=== PATIENT | female | born 1980 | race American Indian/Alaskan Native ===

== ENCOUNTER 2016-05-02 15:24 | Outpatient (CLI) | payer MEDICARE ==
[2016-05-02] MEDS ORDERED: LACTATED RINGERS 500 ML IV ONE (15:43)
[2016-05-02 16:08] VITALS: BP 129/72
--- NOTE | 2016-05-03 10:13 | Ultrasound Report ---
BIOPHYSICAL PROFILE: History: well-being. Technique: Transabdominal ultrasound with Doppler interrogation. 2 - breathing movements 2 - movements 2 - posture and tone 2 - Qualitative amniotic fluid volume 8 - TOTAL SCORE OF POSSIBLE 8 Heart Rate (bpm) 152
--- NOTE | 2016-05-04 12:56 | Ultrasound Report ---
OB ULTRASOUND: TECHNIQUE: Transabdominal ultrasound with Doppler interrogation. Gestation: zhang Position: cephalic Amniotic Fluid: WNL (7-24 cm) COLUMBA = 16.0 cm Placenta: anterior Placental Grade: 0 Heart Rate: 158 BPM Cervical length: 4.2 cm (Normal > 3 cm) The following are not demonstrated due to maternal body habitus or lie: technically difficult exam due to large pt. body habitus. BPD: 8.2 cm = 33 w 0 d HC: 30.5 cm = 34 w 0 d AC: 28.1 cm = 32 w 1 d FL: 5.7 cm = 29 w 6 d HC/AC Ratio: 1.09 Cephalic Index: 79.6 Estimated Weight: 1820 grams (4 lb. 0 oz.) Clinical age = 30 w 3 d EDC: 07-08-16 US Gest. Age = 32 w 2 d EDC: 06-25-16
== END 2016-05-02 18:15 | disposition home or self-care (01) ==
LOC: TRG 15:24
PROVIDERS: ATTEND Obstetrics & Gynecology Gynecology
DX: O47.03 False labor before 37 completed weeks of gestation, third trimester (principal); Z3A.32 32 weeks gestation of pregnancy
CPT/HCPCS: 76816; 76817; 76819

== ENCOUNTER 2016-06-01 18:15 | Outpatient (CLI) | payer MEDICARE ==
[2016-06-01] MEDS ORDERED: LACTATED RINGERS 500 ML IV ONE (18:51)
[2016-06-01 22:00] LABS: Bacteria,Urine 1+ /HPF (Negative); Bilirubin,Urine NEG (Negative); Blood,Urine NEG (Negative); Ketones,Urine TR mg/dL (Negative); Leukocyte Esterase,Urine MOD (Negative); Mucus,Urine 2+ /HPF; Nitrite,Urine NEG (Negative)
[2016-06-01] MEDS ORDERED: TYLENOL PO ONE (22:55)
--- NOTE | 2016-06-01 22:56 | Ultrasound Report ---
FINAL REPORT PROCEDURE: US OB LIMITED TECHNIQUE: Real-time limited sonographic examination was performed for evaluation of the placenta for each fetus with image documentation (1 or more fetuses). CPT 90949 HISTORY: s/p fall. Trauma. Evaluate for placental abruption COMPARISON: Reference is made to prior OB ultrasound exams of February 19, 2016 and December 10, 2005 FINDINGS: This is an ultrasound exam of the placenta only. images were not obtained. The placenta is noted in the fundus. There is no evidence of placenta previa. There is no ultrasound evidence of placental abruption. However overall this exam is somewhat limited due to patient's body habitus which may visualizing the placenta somewhat difficult. IMPRESSION: 1. There is no ultrasound evidence of distinct placental abruption or placenta previa. Placenta is in the fundus. 2. However this exam is somewhat limited due to patient's body habitus. Because of this the placenta was somewhat difficult to visualize. 3. This is a limited ultrasound exam of the placenta only. images were not obtained
== END 2016-06-01 22:40 | disposition home or self-care (01) ==
LOC: TRG 18:15 → LD 18:17 → TRG 22:40
PROVIDERS: ATTEND Obstetrics & Gynecology
DX: O26.893 Other specified pregnancy related conditions, third trimester (principal); O47.03 False labor before 37 completed weeks of gestation, third trimester; R10.2 Pelvic and perineal pain; Z91.81 History of falling; Z3A.34 34 weeks gestation of pregnancy
CPT/HCPCS: 36415; 76815; 81001; J7120

== ENCOUNTER 2016-06-28 17:28 | Inpatient (IN) | payer MEDICARE ==
[2016-06-28] MEDS ORDERED: LACTATED RINGERS 2,000 ML ONE (19:06)
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
[2016-06-28] MEDS ORDERED: PEPCID IV SCH (19:27)
[2016-06-28] MEDS ORDERED: BICITRA PO SCH (19:27)
[2016-06-28] MEDS ORDERED: EMLA TP PRN (19:27)
[2016-06-28] MEDS ORDERED: REGLAN IV SCH (19:27)
[2016-06-28] MEDS ORDERED: NACL 0.9% 500 ML 500 ML IV SCH (19:28)
[2016-06-28] MEDS ORDERED: ANCEF/NS 1 GM/50 ML 1 GM/50 ML BAG IV NR (20:00)
[2016-06-28] MEDS ORDERED: LACTATED RINGERS 1,000 ML IV SCH (20:00)
[2016-06-28] MEDS ORDERED: PITOCin/NS 20 UNIT/1000ML DRIP 20 UNITS/1,000 ML BAG IV SCH (20:00)
[2016-06-28] MEDS ORDERED: ANCEF/STERILE WATER 2 GM/20 ML 2 GM/20 ML SYRINGE IV NR (20:00)
[2016-06-28 20:22] LABS: Basophils % (Auto) 0.4 % (0.0-1.8); Eosinophils % (Auto) 2.2 % (0.0-4.3); Hemoglobin 12.1 gm/dl (10.1-14.3); Mean Corpuscular HGB Conc 33 % (30-34); Mean Corpuscular Hemoglobin 28 pg (28-32); Mean Corpuscular Volume 87 fl (79-97); Platelet Count 490 K/mm3 (140-440); Red Blood Count 4.25 M/mm3 (3.65-5.03); Red Cell Distribution Width 14.3 % (13.2-15.2); White Blood Count 10.4 K/mm3 (4.5-11.0)
--- NOTE | 2016-06-28 21:32 | Anesthesia Day of Surgery ---
Anesthesia Day of Surgery - Day of Surgery Patient Examined: Yes Patient H&P Reviewed: Yes Patient is NPO: Yes
--- NOTE | 2016-06-28 21:32 | Anesthesia Consultation ---
Anesthesia Consult and Med Hx Date of service: 06/28/16 - Airway Anesthetic Teeth Evaluation: Good ROM Head & Neck: Adequate Mental/Hyoid Distance: Adequate Mallampati Class: Class II Intubation Access Assessment: Probably Good - Pulmonary Exam CTA: Yes - Cardiac Exam Cardiac Exam: RRR - Pre-Operative Health Status ASA Pre-Surgery Classification: ASA2 Proposed Anesthetic Plan: Epidural - Pulmonary Hx Asthma: Yes COPD: No Hx Pneumonia: No - Cardiovascular System Hx Hypertension: Yes - Central Nervous System Hx Seizures: No Hx Psychiatric Problems: Yes (bipolar, schizo-effective) - Endocrine Hx Renal Disease: No Hx End Stage Renal Disease: No Hx Hypothyroidism: No Hx Hyperthyroidism: No - Hematic Hx Anemia: Yes Hx Sickle Cell Disease: No - Other Systems Hx Alcohol Use: No Hx Cancer: No
[2016-06-28] MEDS ORDERED: MORPHINE ONE (21:51)
[2016-06-28] MEDS ORDERED: ePHEDrine SULFATE ONE (22:11)
[2016-06-28] MEDS ORDERED: WATER FOR IRRIG STERILE IR ONE (22:20)
[2016-06-28] MEDS ORDERED: NACL 0.9% IR ONE (22:20)
[2016-06-28] MEDS ORDERED: NEO SYNEPHRINE ONE (22:22)
[2016-06-28] MEDS ORDERED: NACL 0.9% 100 ML ONE (22:22)
[2016-06-28] MEDS ORDERED: ANCEF ONE (22:22)
[2016-06-28] MEDS ORDERED: ZOFRAN ONE (22:30)
[2016-06-28] MEDS ORDERED: VERSED ONE (23:54)
[2016-06-29] MEDS ORDERED: NARCAN 0.4 MG/1 ML IV PRN ×2 (00:44→00:51)
[2016-06-29] MEDS ORDERED: ZOFRAN IV PRN ×2 (00:44→00:51)
[2016-06-29] MEDS ORDERED: LANSINOH TP PRN (00:44)
[2016-06-29] MEDS ORDERED: SENOKOT PO PRN (00:44)
[2016-06-29] MEDS ORDERED: MYLICON PO PRN (00:44)
[2016-06-29] MEDS ORDERED: TYLENOL PO PRN (00:44)
[2016-06-29] MEDS ORDERED: TUCKS PAD TP PRN (00:44)
[2016-06-29] MEDS ORDERED: ANUCORT-HC PR PRN (00:44)
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
[2016-06-29] MEDS ORDERED: PHENERGAN PO PRN (00:51)
[2016-06-29] MEDS ORDERED: PHENERGAN PR PRN (00:51)
--- NOTE | 2016-06-29 00:53 | Post Anesthesia Evaluation ---
- Post Anesthesia Evaluation Patient Participated: Yes Airway Patent: Yes Stable Respiratory Function: Yes Nausea/Vomiting: No Temp > 96.8F: Yes Pain Manageable: Yes Adequeate Hydration: Yes Anesthesia Complications: No Block Receding Appropriately: Yes Patient on Ventilator: No
[2016-06-29] MEDS ORDERED: D5LR 1,000 ML IV SCH (01:00)
[2016-06-29] MEDS ORDERED: SODIUM CHLORIDE FLUSH SYRINGE 10 ML IV NR ×2 (01:00)
[2016-06-29] MEDS ORDERED: fentaNYL-BUPIV 2 MCG/ML-0.125% 200 MCG/100 ML BAG EPIDURAL SCH (01:00)
[2016-06-29] MEDS ORDERED: PITOCin/NS 20 UNIT/1000ML DRIP 20 UNITS/1,000 ML BAG IV SCH (01:00)
[2016-06-29 04:32] LABS: INR 0.95 (0.87-1.13)
[2016-06-29 07:20] LABS: Hematocrit 37.3 % (30.3-42.9); Hemoglobin 12.4 gm/dl (10.1-14.3)
--- NOTE | 2016-06-29 08:06 | Ultrasound Report ---
BIOPHYSICAL PROFILE: Technique: Transabdominal ultrasound with Doppler interrogation. 2 - breathing movements 2 - movements 2 - posture and tone 0 - Qualitative amniotic fluid volume 6 - TOTAL SCORE OF POSSIBLE 8 Heart Rate (bpm) 158
--- NOTE | 2016-06-29 08:06 | Ultrasound Report ---
OB LIMITED Technique: Transabdominal ultrasound with Doppler interrogation. Gestation: Single Position: Cephalic Amniotic Fluid: Decreased COLUMBA = 5.9 cm Placenta: Anterior Placental Grade: 2 Heart Rate: 158 BPM
[2016-06-29] MEDS: PERCOCET 5/325 PO PRN ×3 (08:36→23:22)
[2016-06-29] MEDS ORDERED: BENADRYL PO PRN (09:00)
--- NOTE | 2016-06-29 09:23 | Progress Note ---
Subjective Date of service: 06/29/16 Interval history: 1st POD after Patient is in the bed, comfortable. Pain is well controlled with pain meds. Epidural catheter has been removed before. No anesthesia complications Objective - Constitutional Vitals: Vital Signs - 12hr 06/28/16 06/29/16 06/29/16 23:51 00:32 00:35 Temperature 94.0 F L Pulse Rate 78 Pulse Rate [ Left From Monitor] Respiratory Rate Blood Pressure 98/56 Blood Pressure [Left Arm] O2 Sat by Pulse 90 Oximetry 06/29/16 06/29/16 06/29/16 00:40 00:50 01:00 Temperature Pulse Rate 70 74 64 Pulse Rate [ Left From Monitor] Respiratory 18 11 L 21 Rate Blood Pressure 109/34 104/36 93/46 Blood Pressure [Left Arm] O2 Sat by Pulse 94 87 95 Oximetry 06/29/16 06/29/16 06/29/16 01:05 01:10 01:20 Temperature 94.0 F L Pulse Rate 59 L 65 Pulse Rate [ Left From Monitor] Respiratory 13 19 Rate Blood Pressure 94/48 104/34 Blood Pressure [Left Arm] O2 Sat by Pulse 96 96 Oximetry 06/29/16 06/29/16 06/29/16 01:30 01:35 01:40 Temperature 94.0 F L Pulse Rate 63 62 Pulse Rate [ Left From Monitor] Respiratory 16 15 Rate Blood Pressure 101/32 Blood Pressure [Left Arm] O2 Sat by Pulse 95 96 Oximetry 06/29/16 06/29/16 06/29/16 01:50 02:00 02:10 Temperature Pulse Rate 66 71 68 Pulse Rate [ Left From Monitor] Respiratory 13 12 17 Rate Blood Pressure 105/49 99/48 106/52 Blood Pressure [Left Arm] O2 Sat by Pulse 98 97 97 Oximetry 06/29/16 06/29/16 06/29/16 02:20 02:25 02:30 Temperature 97.5 F L Pulse Rate 74 71 Pulse Rate [ Left From Monitor] Respiratory 17 20 Rate Blood Pressure 100/53 110/59 Blood Pressure [Left Arm] O2 Sat by Pulse 97 93 Oximetry 06/29/16 06/29/16 06/29/16 02:40 02:45 02:50 Temperature 97.5 F L Pulse Rate 73 73 Pulse Rate [ Left From Monitor] Respiratory 18 15 Rate Blood Pressure 110/67 112/59 Blood Pressure [Left Arm] O2 Sat by Pulse 97 98 Oximetry 06/29/16 06/29/16 06/29/16 03:00 03:10 03:15 Temperature 97.5 F L Pulse Rate 78 76 Pulse Rate [ Left From Monitor] Respiratory 18 20 Rate Blood Pressure 111/66 108/65 Blood Pressure [Left Arm] O2 Sat by Pulse 95 94 Oximetry 06/29/16 06/29/16 06/29/16 04:30 05:30 06:15 Temperature 97.9 F Pulse Rate Pulse Rate [ 107 H Left From Monitor] Respiratory 20 20 20 Rate Blood Pressure Blood Pressure 107/62 [Left Arm] O2 Sat by Pulse Oximetry 06/29/16 08:36 Temperature Pulse Rate Pulse Rate [ Left From Monitor] Respiratory 20 Rate Blood Pressure Blood Pressure [Left Arm] O2 Sat by Pulse Oximetry - Labs CBC & Chem 7: 06/29/16 06:56 Labs: Abnormal lab results 06/28/16 06/28/16 06/29/16 Range/Units 19:55 19:55 03:30 Plt Count 490 H (140-440) K/mm3 Fibrinogen 538 H (211-480) mg/dl Crossmatch See Detail
[2016-06-29] MEDS: PRENATAL VITAMIN PO SCH (11:04)
[2016-06-29] MEDS: FEOSOL PO SCH (11:04)
[2016-06-29 14:01] LABS: Hematocrit 36.9 % (30.3-42.9); Hemoglobin 11.9 gm/dl (10.1-14.3)
[2016-06-29] MEDS: MOTRIN PO PRN (23:21)
[2016-06-30] MEDS: PERCOCET 5/325 PO PRN ×3 (08:47→19:53)
--- NOTE | 2016-06-30 08:59 | Progress Note ---
Assessment and Plan - Patient Problems (1) Status post repeat low transverse section Onset Date: 06/30/16 Current Visit: Yes Status: Resolved Plan to address problem: A: S/P Repeat C Section - POD #1 Doing well P: Continue RPOC Anticipate discharge in 24-48hrs (2) Morbid obesity with BMI of 50.0-59.9, adult Onset Date: 06/15/16 Current Visit: No Status: Chronic Subjective - Subjective Date of service: 06/30/16 Principal diagnosis: s/p Repeat C Section - POD #1 Interval history: Pt is feeling well without complaints, tolerating a liquid diet without nausea or vomiting. No flatus yet. Patient reports: appetite normal, voiding normally, pain well controlled, ambulating normally, no flatus : doing well, bottle feeding Objective - Vital Signs Latest vital signs: Vital Signs Temp Pulse Pulse Resp BP 06/30/16 08:47 20 06/30/16 01:50 98.6 F 91 H 18 107/56 06/29/16 23:22 18 06/29/16 23:21 18 06/29/16 21:15 98.7 F 88 20 118/75 06/29/16 16:38 98.3 F 92 H 20 92/58 06/29/16 14:10 20 06/29/16 12:35 98.1 F 84 20 100/70 Intake and Output 06/29/16 06/30/16 06/30/16 22:59 06:59 14:59 Intake Total 860 600 Output Total 850 Balance 10 600 Intake: IV 500 D5lr 1,000 ml @ 125 mls/ 500 hr IV DIRECT JOSELINE Rx#: [id number] Oral 360 Intake, Free Water 600 Output: Urine 850 Void 850 Other: Total, Intake Amount 240 Total, Output Amount 250 # Voids Void 1 - Exam Breasts: Present: deferred Cardiovascular: Present: Regular rate Lungs: Present: Clear to auscultation Abdomen: Present: normal appearance Uterus: Present: normal, firm, fundal height below umbilicus Extremities: Present: normal Incision: Present: normal, dry, intact, dressed - Labs Labs: Laboratory Tests 06/28/16 06/28/16 06/29/16 19:55 19:55 03:30 WBC 10.4 RBC 4.25 Hgb 12.1 Hct 37.0 MCV 87 MCH 28 MCHC 33 RDW 14.3 Plt Count 490 H Lymph % (Auto) 30.5 [place] % (Auto) 5.7 Eos % (Auto) 2.2 Baso % (Auto) 0.4 Lymph # 3.2 [place] # 0.6 Eos # 0.2 Baso # 0.0 Seg Neutrophils % 61.2 Seg Neutrophils # 6.4 PT 12.6 INR 0.95 Fibrinogen Blood Type O POSITIVE Antibody Screen Negative Crossmatch See Detail 06/29/16 06/29/16 06/29/16 03:30 06:56 13:36 WBC RBC Hgb 12.4 11.9 Hct 37.3 36.9 MCV MCH MCHC RDW Plt Count Lymph % (Auto) [place] % (Auto) Eos % (Auto) Baso % (Auto) Lymph # [place] # Eos # Baso # Seg Neutrophils % Seg Neutrophils # PT INR Fibrinogen 538 H Blood Type Antibody Screen Crossmatch
[2016-06-30] MEDS: FEOSOL PO SCH (10:08)
[2016-06-30] MEDS: PRENATAL VITAMIN PO SCH (10:08)
[2016-06-30] MEDS: MOTRIN PO PRN ×2 (16:09→22:24)
[2016-07-01] MEDS: PERCOCET 5/325 PO PRN ×3 (05:09→23:37)
--- NOTE | 2016-07-01 10:30 | Progress Note ---
Assessment and Plan - Patient Problems (1) Status post repeat low transverse section Onset Date: 06/30/16 Current Visit: Yes Status: Resolved Plan to address problem: A: S/P Repeat C Section - POD #2 Doing well P: Continue RPOC Anticipate discharge in 24hrs (2) Morbid obesity with BMI of 50.0-59.9, adult Onset Date: 06/15/16 Current Visit: No Status: Chronic Subjective - Subjective Date of service: 07/01/16 Principal diagnosis: s/p Repeat C Section - POD #2 Interval history: Pt is feeling well without complaints, tolerating a reg diet without nausea or vomiting, ambulating and voiding without difficulty. Patient reports: appetite normal, voiding normally, pain well controlled, flatus , ambulating normally : doing well, bottle feeding Objective - Vital Signs Latest vital signs: Vital Signs Temp Pulse Resp BP 07/01/16 08:14 98.2 F 85 20 99/51 07/01/16 00:00 98.9 F 90 18 90/50 06/30/16 16:45 97.3 F L 96 H 18 120/75 06/30/16 16:09 20 06/30/16 14:02 20 Intake and Output 06/30/16 07/01/16 07/01/16 22:59 06:59 14:59 Intake Total 440 240 24 Balance 440 240 24 Intake: Oral 440 240 24 Other: Total, Intake Amount 240 240 24 # Voids Void 1 1 1 - Exam Breasts: Present: deferred Cardiovascular: Present: Regular rate Lungs: Present: Clear to auscultation Abdomen: Present: normal appearance, soft Uterus: Present: normal, firm, fundal height below umbilicus Extremities: Present: normal Incision: Present: normal, dry, intact (with michael)
[2016-07-01] MEDS: PRENATAL VITAMIN PO SCH (11:46)
[2016-07-01] MEDS: MOTRIN PO PRN ×2 (11:47→21:47)
[2016-07-01] MEDS: FEOSOL PO SCH (11:47)
--- NOTE | 2016-07-02 09:04 | Progress Note ---
Assessment and Plan - Patient Problems (1) Status post repeat low transverse section Onset Date: 06/30/16 Current Visit: Yes Status: Resolved Plan to address problem: A: S/P Repeat C Section - POD #3 Doing well P: Continue RPOC May go home today Follow up in office in 1 week for staple removal (2) Morbid obesity with BMI of 50.0-59.9, adult Onset Date: 06/15/16 Current Visit: No Status: Chronic Subjective - Subjective Date of service: 07/02/16 Principal diagnosis: s/p Repeat C Section - POD #3 Interval history: Pt is feeling well without complaints, tolerating a reg diet without nausea or vomiting, ambulating and voiding without difficulty. Patient reports: appetite normal, voiding normally, pain well controlled, flatus , ambulating normally : doing well, bottle feeding Objective - Vital Signs Latest vital signs: Vital Signs Temp Pulse Resp BP 07/02/16 00:08 98.4 F 86 18 117/66 07/01/16 16:41 97.9 F 87 20 118/60 Intake and Output 07/01/16 07/02/16 07/02/16 22:59 06:59 14:59 Intake Total 480 600 Balance 480 600 Intake: Oral 240 Intake, Free Water 240 600 Other: Total, Intake Amount 240 # Voids Void 1 - Exam Abdomen: Present: normal appearance, soft Uterus: Present: normal, firm, fundal height below umbilicus Extremities: Present: normal Incision: Present: normal, dry, intact (with michael)
[2016-07-02] MEDS: FEOSOL PO SCH (10:13)
[2016-07-02] MEDS: PRENATAL VITAMIN PO SCH (10:13)
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
[2016-07-02] MEDS: PERCOCET 5/325 PO PRN (12:36)
[2016-07-02] MEDS: MOTRIN PO PRN (12:37)
[2016-07-02 18:03] VITALS: BP 106/66
== END 2016-07-02 17:00 | disposition home or self-care (01) | DRG 765 ==
LOC: TRG 17:28 → APU 19:26 → OB 06-29 04:59
PROVIDERS: ADMIT Obstetrics & Gynecology Gynecology; ATTEND Obstetrics & Gynecology Gynecology
PROC: 30233N1 Transfusion of Nonautologous Red Blood Cells into Peripheral Vein, Percutaneous Approach (ICD-10-PCS; 2016-06-28)
PROC: 0DNE0ZZ Release Large Intestine, Open Approach (ICD-10-PCS; principal; 2016-06-29)
PROC: 10D00Z1 Extraction of Products of Conception, Low, Open Approach (ICD-10-PCS; principal; 2016-06-29)
PROC: 0UN90ZZ Release Uterus, Open Approach (ICD-10-PCS; principal; 2016-06-29)
DX: O42.92 Full-term premature rupture of membranes, unspecified as to length of time between rupture and onset of labor (principal); Z68.43 Body mass index [BMI] 50.0-59.9, adult; O99.214 Obesity complicating childbirth; E66.01 Morbid (severe) obesity due to excess calories; O34.212 Maternal care for vertical scar from previous cesarean delivery; O99.52 Diseases of the respiratory system complicating childbirth; J45.909 Unspecified asthma, uncomplicated; O99.344 Other mental disorders complicating childbirth; F31.9 Bipolar disorder, unspecified; O16.4 Unspecified maternal hypertension, complicating childbirth; O99.62 Diseases of the digestive system complicating childbirth; K66.0 Peritoneal adhesions (postprocedural) (postinfection); Z3A.38 38 weeks gestation of pregnancy; Z37.0 Single live birth; Z53.8 Procedure and treatment not carried out for other reasons
CPT/HCPCS: 36415; 76815; 76819; 85014; 85018; 85025; 85384; 85610; 86850; 86900; 86901; 86920; C9250; J0690; J2250; J2270; J2370; J2405; J2590; J2765; J7040; J7120; J7121; P9016

== ENCOUNTER 2018-12-26 16:19 | Inpatient (IN) | payer MEDICARE ==
--- NOTE | 2018-12-26 17:10 | Emergency Department Report ---
Blank Doc - Documentation Documentation: 38-year-old female that presents with headache and URI symptoms. This initial assessment/diagnostic orders/clinical plan/treatment(s) is/are subject to change based on patient's health status, clinical progression and re- assessment by fellow clinical providers in the ED. Further treatment and workup at subsequent clinical providers discretion. Patient/guardians urged not to elope from the ED as their condition may be serious if not clinically assessed and managed. Initial orders include: 1- Patient sent to [facility] for further evaluation and treatment 2- cXR
--- NOTE | 2018-12-26 17:54 | XRay Report ---
CHEST PA AND LATERAL VIEWS INDICATION: cough. COMPARISON: 01/31/2018. FINDINGS: Support devices: None. Heart: Within normal limits. Lungs/Pleura: No acute pulmonary or pleural findings. IMPRESSION: 1. No acute findings. Signer Name: Clarence Mcclain MD Signed: 12/26/2018 5:50 PM Workstation Name: [id number]
[2018-12-26] MEDS ORDERED: TORADOL IV ONE (21:44)
[2018-12-26] MEDS ORDERED: ZOFRAN IV ONE (21:44)
[2018-12-26] MEDS ORDERED: DECADRON IV ONE (21:44)
[2018-12-26] MEDS ORDERED: NACL 0.9% 1000 ML 1,000 ML IV ONE ×2 (21:44→23:54)
[2018-12-26 22:26] LABS: Basophils # (Auto) 0.1 K/mm3 (0.0-0.1); Basophils % (Auto) 0.4 % (0.0-1.8); Eosinophils # (Auto) 0.1 K/mm3 (0.0-0.4); Hematocrit 41.3 % (30.3-42.9); Hemoglobin 13.1 gm/dl (10.1-14.3); Lymphocytes # (Auto) 3.7 K/mm3 (1.2-5.4); Lymphocytes % (Auto) 27.9 % (13.4-35.0); Mean Corpuscular HGB Conc 32 % (30-34); Mean Corpuscular Volume 91 fl (79-97); Monocytes % (Auto) 7.6 % (0.0-7.3); Platelet Count 621 K/mm3 (140-440); Red Blood Count 4.57 M/mm3 (3.65-5.03); Red Cell Distribution Width 16.5 % (13.2-15.2)
[2018-12-26 23:06] LABS: Calcium 9.2 mg/dL (8.4-10.2)
[2018-12-26] MEDS ORDERED: ROCEPHIN/NS 1 GM/50 ML 1 GM/50 ML BAG IV ONE (23:55)
[2018-12-27] MEDS ORDERED: ROCEPHIN IM ONE (00:42)
--- NOTE | 2018-12-27 02:17 | Cat Scan Report ---
CT ABDOMEN AND PELVIS WITH CONTRAST INDICATION: abdominal pain, nausea, vomiting, diarrhea, body aches CONTRAST: 60 cc Omnipaque 300 IV COMPARISON: 01/05/2015, report unavailable All CT scans at this location are performed using CT dose reduction for ALARA by means of automated e xposure control. NOTE: Resolution is decreased and artifact is introduced by the patient's size. FINDINGS: Lung bases are clear. No pneumoperitoneum is seen. Liver shows fatty infiltration and is pr ominently enlarged with a length of 24.9 cm. No focal lesions are obvious. Spleen has been removed as has the left kidney. Right kidney appears within normal limits. Appendix appears within normal limit s. No evidence of bowel obstruction is seen. Midline abdominal wall laxity is seen. Small areas of he rniation of small bowel are seen though detail is low. A density in the deep subcutaneous tissues and a former incision site probably represents scarring and is much less prominent than in 2015. No flui d collection is seen. Bowel surgical changes are again noted. Complex area at the pelvis anteriorly o n prior study is no longer seen. No focal inflammatory changes are noted. No free fluid is seen. IMPRESSION: No acute abnormalities are seen Signer Name: Eladio Bhakta MD Signed: 12/27/2018 2:13 AM Workstation Name: [id number]
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
[2018-12-27 04:43] LABS: INR 1.29 (0.87-1.13)
[2018-12-27 04:44] LABS: Partial Thromboplastin Time 46.3 Sec. (24.2-36.6)
[2018-12-27 04:59] LABS: Hepatitis B Surface Antigen Non-Reactive (Negative); Hepatitis C Virus Antibody Non-Reactive (NonReactive)
[2018-12-27 05:15] LABS: Bacteria,Urine 1+ /HPF (Negative); Bilirubin,Urine NEG (Negative); Blood,Urine NEG (Negative); Color,Urine Amber (Yellow); HCG Qualitative,Urine Negative (Negative); Mucus,Urine FEW /HPF
[2018-12-27 06:10] LABS: Calcium 8.8 mg/dL (8.4-10.2)
[2018-12-27 06:13] LABS: Albumin 3.2 g/dL (3.9-5); Bilirubin,Direct 0.6 mg/dL (0-0.2)
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
[2018-12-27] MEDS: MORPHINE IV PRN ×3 (08:46→21:03)
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
[2018-12-27] MEDS: NACL 0.9% 1000 ML 1,000 ML IV SCH ×2 (09:54→21:02)
[2018-12-27] MEDS: KIONEX PO SCH ×2 (09:54→14:32)
[2018-12-27] MEDS: HEPARIN SUB-Q SCH ×2 (09:54→21:04)
--- NOTE | 2018-12-27 10:43 | Event Note ---
Date: 12/27/18 Patient with ROBIN, elevated LFT. I have seen and examined her. I discussed with GI Physician.
--- NOTE | 2018-12-27 12:30 | Ultrasound Report ---
ULTRASOUND RENAL RIGHT HISTORY: Acute kidney injury COMPARISON: CT abdomen pelvis with contrast dated 12/27/2018. FINDINGS: The right kidney is normal size, position and echotexture. No focal renal lesion, nephrolithiasis or hydronephrosis. The right kidney measures 15.5 cm in length. Cortical thickness measures 2.2 cm. Left nephrectomy. The bladder is unremarkable. IMPRESSION: Normal ultrasound appearance of the right kidney. Signer Name: Monty Muniz Jr, MD Signed: 12/27/2018 12:26 PM Workstation Name: [id number]
[2018-12-27 14:03] LABS: Chloride, Urine 23.5 mmolL (110-250); Creatinine,Urine 267.3 mg/dL (0.1-20.0); Protein/Creatinine Ratio,Urine 0.44
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
[2018-12-27] MEDS ORDERED: VITAMIN K (ADULT ONLY) 10 MG in NACL 0.9% 50 ML IV ONE (15:30)
[2018-12-27] MEDS: AMBIEN PO SCH (21:04)
[2018-12-27] MEDS: ZOFRAN IV PRN (21:05)
[2018-12-28] MEDS: MORPHINE IV PRN ×3 (01:25→19:48)
[2018-12-28 01:43] LABS: INR 1.1 (0.87-1.13)
[2018-12-28] MEDS: NACL 0.9% 1000 ML 1,000 ML IV SCH ×4 (04:50→22:18)
[2018-12-28 05:26] LABS: Hematocrit 35.5 % (30.3-42.9); Hemoglobin 11.6 gm/dl (10.1-14.3); Mean Corpuscular HGB Conc 33 % (30-34); Mean Corpuscular Volume 90 fl (79-97); Platelet Count 575 K/mm3 (140-440); Red Blood Count 3.97 M/mm3 (3.65-5.03); Red Cell Distribution Width 16.3 % (13.2-15.2)
[2018-12-28 05:47] LABS: Albumin 2.9 g/dL (3.9-5); BUN/Creatinine Ratio 15; Blood Urea Nitrogen 15 mg/dL (7-17); Calcium 8.6 mg/dL (8.4-10.2); Hemolysis Index 4
[2018-12-28 06:30] LABS: Alanine Aminotransferase 788 units/L (7-56)
[2018-12-28] MEDS: HEPARIN SUB-Q SCH ×2 (09:49→22:18)
--- NOTE | 2018-12-28 10:00 | Progress Note ---
Assessment and Plan - Patient Problems (1) Acute kidney failure Current Visit: Yes Status: Acute Plan to address problem: Likely pre-renal in origin. Agree with IVF hydration as patient attempts to slowly increase her oral intake as tolerated. Urine electrolytes as well as renal US reviewed Avoid nephrotoxins, maintain MAP >65mmHg. Renal function is showing improvement, will continue to monitor. (2) Hyperkalemia Current Visit: Yes Status: Acute Plan to address problem: Likely in the setting of ROBIN, Resolved With increased distal sodium delivery via IVF/NS, helping to augment potassium excretion. Low K diet. (3) Hypertensive chronic kidney disease with stage 1 through stage 4 chronic kidney disease, or unspecified chronic kidney disease Current Visit: Yes Status: Chronic Plan to address problem: Continue current regimen and closely monitor. (4) Abdominal pain Current Visit: Yes Status: Acute Qualifiers: Abdominal location: generalized Qualified Code(s): R10.84 - Generalized abdominal pain Plan to address problem: No acute abnormalities seen on CT abdomen. GI evaluation reviewed. (5) Transaminitis Current Visit: Yes Status: Acute Plan to address problem: Hepatitis profile was negative. GI recommendations reviewed. (6) Morbid obesity Current Visit: Yes Status: Chronic Plan to address problem: Counseled patient on the importance of weight loss, and daily exercise. Subjective Date of service: 12/28/18 Interval history: No acute changes overnight. SHe is tolerating PO diet, but still complaining of abdominal discomfort and nausea. Overall, her symptoms are showing slow improvement since admission. Renal function improving with adequate fluid hydration. Renal US did not show any acute abnormalities. Objective - Vital Signs Vital signs: Vital Signs - 12hr 12/27/18 12/28/18 12/28/18 22:00 01:25 01:55 Temperature 97.5 F L Pulse Rate 86 Respiratory 20 18 18 Rate Respiratory 18 Rate [ generalized] Blood Pressure 152/101 O2 Sat by Pulse 94 Oximetry 12/28/18 04:50 Temperature 97.4 F L Pulse Rate 76 Respiratory 20 Rate Respiratory Rate [ generalized] Blood Pressure 119/86 O2 Sat by Pulse 96 Oximetry - General Appearance General appearance: appears stated age, obese EENT: ATNC, PERRL Neck: no JVD, no thyromegaly Respiratory: Present: Clear to Ascultation, Normal Exam Cardiology: regular, S1S2 Gastrointestinal: normoactive bowel sounds Integumentary: no rash, warm and dry Neurologic: no focal deficit, alert and oriented x3 Psychiatric: mood/affect appropriate, cooperative - Lab 12/28/18 04:58 12/28/18 04:58 Most recent lab results Calcium 8.6 mg/dL (8.4-10.2) 12/28/18 04:58 267.3 mg/dL (0.1-20.0) H 12/27/18 Unknown 16 mmol/L 12/27/18 Unknown 117 mg/dL (5-11.8) H 12/27/18 Unknown - Allied health notes Allied health notes reviewed: nursing Medications & Allergies - Medications Allergies/Adverse Reactions: Allergies No Known Allergies Allergy (Verified 01/31/18 16:41) Home Medications: Home Medications Medication Instructions Recorded Confirmed Last Taken Type Zolpidem [Ambien] 10 mg PO QHS 06/30/16 12/27/18 Unknown History Amlodipine Besylate [Norvasc] 5 mg PO DAILY 12/27/18 12/27/18 Unknown History Active Medications: Generic Name Dose Route Start Last Admin Trade Name Freq PRN Reason Stop Dose Admin Heparin Sodium (Porcine) 5,000 unit 12/27/18 10:00 12/28/18 09:49 Heparin SUB-Q 5,000 unit Q12HR JOSELINE Administration Sodium Chloride 1,000 mls @ 125 mls/hr 12/27/18 06:00 12/28/18 04:50 Nacl 0.9% 1000 Ml IV 125 mls/hr DIRECT JOSELINE Administration Morphine Sulfate 2 mg 12/27/18 05:02 12/28/18 09:49 Morphine IV 2 mg Q4H PRN Administration Pain, Moderate (4-6) Ondansetron HCl 4 mg 12/27/18 05:02 12/27/18 21:05 Zofran IV 4 mg Q8H PRN Administration Nausea And Vomiting Zolpidem Tartrate 10 mg 12/27/18 22:00 12/27/18 21:04 Ambien PO 10 mg QHS JOSELINE Administration
--- NOTE | 2018-12-28 13:59 | Progress Note ---
Assessment and Plan Assessment and plan: ROBIN due to vasomotor nephropathy Cr 1.6 on admission Improving Elevated LFT improving GI following Acute gastroenteritis Abd pain Perxccocet prn History of breast cancer Managed at [facility] Morbid obesity History Interval history: Right upper quadrant pain Hospitalist Physical - Physical exam Narrative exam: Gen: Not in acute distress, Lying in bed,morbidly obese HEENT: Normocephalic, atraumatic Neck: supple, no JVD Heart: S1 and S2 reg, no murmurs, rubs or gallop Lungs: Clear to auscultation, no rhonchi, no wheeze Abd: soft, Tender right upper quad, non distended, normal BS, Ext: No edema, no clubbing, no cyanosis Neuro: Awake, alert, oriented X 3, no focal neurological signs - Constitutional Vitals: Temp Pulse Resp BP Pulse Ox 98.3 F 81 20 144/89 92 12/28/18 11:38 12/28/18 11:38 12/28/18 11:38 12/28/18 11:38 12/28/18 11:38 General appearance: Present: no acute distress Results - Labs CBC & Chem 7: 12/28/18 04:58 12/28/18 04:58 Labs: Laboratory Last Values WBC 16.2 K/mm3 (4.5-11.0) H 12/28/18 04:58 RBC 3.97 M/mm3 (3.65-5.03) 12/28/18 04:58 Hgb 11.6 gm/dl (10.1-14.3) 12/28/18 04:58 Hct 35.5 % (30.3-42.9) 12/28/18 04:58 MCV 90 fl (79-97) 12/28/18 04:58 MCH 29 pg (28-32) 12/28/18 04:58 MCHC 33 % (30-34) 12/28/18 04:58 RDW 16.3 % (13.2-15.2) H 12/28/18 04:58 Plt Count 575 K/mm3 (140-440) H 12/28/18 04:58 Lymph % (Auto) 27.9 % (13.4-35.0) 12/26/18 21:56 [place] % (Auto) 7.6 % (0.0-7.3) H 12/26/18 21:56 Eos % (Auto) 1.0 % (0.0-4.3) 12/26/18 21:56 Baso % (Auto) 0.4 % (0.0-1.8) 12/26/18 21:56 Lymph # 3.7 K/mm3 (1.2-5.4) 12/26/18 21:56 [place] # 1.0 K/mm3 (0.0-0.8) H 12/26/18 21:56 Eos # 0.1 K/mm3 (0.0-0.4) 12/26/18 21:56 Baso # 0.1 K/mm3 (0.0-0.1) 12/26/18 21:56 Seg Neutrophils % 63.1 % (40.0-70.0) 12/26/18 21:56 Seg Neutrophils # 8.4 K/mm3 (1.8-7.7) H 12/26/18 21:56 PT 13.9 Sec. (12.2-14.9) 12/28/18 01:10 INR 1.10 (0.87-1.13) 12/28/18 01:10 APTT 46.3 Sec. (24.2-36.6) H 12/27/18 04:13 Sodium 137 mmol/L (137-145) 12/28/18 04:58 Potassium 4.6 mmol/L (3.6-5.0) 12/28/18 04:58 Chloride 100.5 mmol/L (98-107) 12/28/18 04:58 Carbon Dioxide 26 mmol/L (22-30) 12/28/18 04:58 15 mmol/L 12/28/18 04:58 BUN 15 mg/dL (7-17) 12/28/18 04:58 1.0 mg/dL (0.7-1.2) 12/28/18 04:58 Estimated GFR > 60 ml/min 12/28/18 04:58 15 % 12/28/18 04:58 Glucose 126 mg/dL (65-100) H 12/28/18 04:58 POC Glucose 117 (70-105) H 12/28/18 11:17 Calcium 8.6 mg/dL (8.4-10.2) 12/28/18 04:58 0.50 mg/dL (0.1-1.2) 12/28/18 04:58 0.6 mg/dL (0-0.2) H 12/27/18 05:13 0.3 mg/dL 12/27/18 05:13 AST 277 units/L (5-40) H 12/28/18 04:58 ALT 788 units/L (7-56) H 12/28/18 04:58 82 units/L (35-129) 12/28/18 04:58 < 0.010 ng/mL (0.00-0.029) 12/27/18 00:10 7.4 g/dL (6.3-8.2) 12/28/18 04:58 2.9 g/dL (3.9-5) L 12/28/18 04:58 0.6 % 12/28/18 04:58 7 units/L (13-60) L 12/26/18 21:56 [place] (Yellow) 12/27/18 04:23 Slightly-cloudy (Clear) 12/27/18 04:23 6.0 (5.0-7.0) 12/27/18 04:23 Ur Specific [place] 1.060 (1.003-1.030) H 12/27/18 04:23 30 mg/dl mg/dL (Negative) 12/27/18 04:23 Neg mg/dL (Negative) 12/27/18 04:23 Neg mg/dL (Negative) 12/27/18 04:23 Neg (Negative) 12/27/18 04:23 Neg (Negative) 12/27/18 04:23 Neg (Negative) 12/27/18 04:23 4.0 mg/dL (<2.0) 12/27/18 04:23 Ur Leukocyte Esterase Neg (Negative) 12/27/18 04:23 4.0 /HPF (0.0-6.0) 12/27/18 04:23 4.0 /HPF (0.0-6.0) 12/27/18 04:23 U Epithel Cells (Auto) 24.0 /HPF (0-13.0) H 12/27/18 04:23 1+ /HPF (Negative) 12/27/18 04:23 Few /HPF 12/27/18 04:23 267.3 mg/dL (0.1-20.0) H 12/27/18 Unknown Protein/Creatinin Ratio 0.44 12/27/18 Unknown 16 mmol/L 12/27/18 Unknown 23.5 mmolL (110-250) L 12/27/18 Unknown 117 mg/dL (5-11.8) H 12/27/18 Unknown Urine HCG, Qual Negative (Negative) 12/27/18 04:23 Hepatitis A IgM Ab Non-reactive (NonReactive) 12/27/18 04:02 Hep Bs Antigen Non-reactive (Negative) 12/27/18 04:02 Hep B Core IgM Ab Non-reactive (NonReactive) 12/27/18 04:02 Non-reactive (NonReactive) 12/27/18 04:02 Active Medications - Current Medications Current Medications: Generic Name Dose Route Start Last Admin Trade Name Freq PRN Reason Stop Dose Admin Heparin Sodium (Porcine) 5,000 unit 12/27/18 10:00 12/28/18 09:49 Heparin SUB-Q 5,000 unit Q12HR JOSELINE Administration Sodium Chloride 1,000 mls @ 125 mls/hr 12/27/18 06:00 12/28/18 12:50 Nacl 0.9% 1000 Ml IV 125 mls/hr DIRECT JOSELINE Administration Morphine Sulfate 2 mg 12/27/18 05:02 12/28/18 09:49 Morphine IV 2 mg Q4H PRN Administration Pain, Moderate (4-6) Ondansetron HCl 4 mg 12/27/18 05:02 12/27/18 21:05 Zofran IV 4 mg Q8H PRN Administration Nausea And Vomiting Zolpidem Tartrate 10 mg 12/27/18 22:00 12/27/18 21:04 Ambien PO 10 mg QHS JOSELINE Administration
--- NOTE | 2018-12-28 14:04 | Progress Note ---
Assessment and Plan 1. Abnormal LFTs - etiology unclear. Acute hepatitis panel negative. DDx - broad. Pt describes a viral illness that affected her neighbor 3 wks ago, and then everyone in the house, so she may well have an atypical viral hepatitis that will spontaneously resolve. Baseline LFTs unknown, and pt may well have underlying liver disease due to meds, EtOH, or obesity. No evidence of biliary obstruction or hepatic mass. - improving LFTs, and INR normalized - advised to quit EtOH. 2. RUQ pain - ongoing x ~ 1 wk. May be musculoskeletal and due to viral illness x 3 wks with retching, etc. No clear GI pathology given labs, studies, and exam today. - empiric PPI, and may be f/u'd as outpatient 3. Hx breast cancer - continue f/u with [facility]cologist. Subjective Date of service: 12/28/18 Interval history: Pt jeniffer po. Complains of intermittent RUQ stabbing throbbing pain x 1 wk. Had a loose BM last night, no blood. Objective - Constitutional Vitals: Vital Signs - 12hr 12/28/18 12/28/18 04:50 11:38 Temperature 97.4 F L 98.3 F Pulse Rate 76 81 Respiratory 20 20 Rate Blood Pressure 119/86 144/89 O2 Sat by Pulse 96 92 Oximetry General appearance: Present: mild distress - EENT Eyes: PERRL ENT: hearing intact - Respiratory Respiratory effort: normal - Gastrointestinal General gastrointestinal: Present: soft, tender (Mild, in epigastrium and RUQ), normal bowel sounds - Additional findings Additional findings: Moderate tenderness in R costochondral region. Inframammary skin with chronic changes c/w maceration and likely fungal infection. - Labs CBC & Chem 7: 12/28/18 04:58 12/28/18 04:58 Labs: Abnormal lab results 12/27/18 12/28/18 12/28/18 Range/Units Unknown 04:58 04:58 WBC 16.2 H (4.5-11.0) K/mm3 RDW 16.3 H (13.2-15.2) % Plt Count 575 H (140-440) K/mm3 Glucose 126 H (65-100) mg/dL POC Glucose (70-105) AST 277 H (5-40) units/L ALT 788 H (7-56) units/L Albumin 2.9 L (3.9-5) g/dL Urine Creatinine 267.3 H (0.1-20.0) mg/dL Urine Chloride 23.5 L (110-250) mmolL Urine Total Protein 117 H (5-11.8) mg/dL 12/28/18 12/28/18 Range/Units 07:48 11:17 WBC (4.5-11.0) K/mm3 RDW (13.2-15.2) % Plt Count (140-440) K/mm3 Glucose (65-100) mg/dL POC Glucose 119 H 117 H (70-105) AST (5-40) units/L ALT (7-56) units/L Albumin (3.9-5) g/dL Urine Creatinine (0.1-20.0) mg/dL Urine Chloride (110-250) mmolL Urine Total Protein (5-11.8) mg/dL Medications & Allergies - Medications Allergies/Adverse Reactions: Allergies No Known Allergies Allergy (Verified 01/31/18 16:41) Home Medications: Home Medications Medication Instructions Recorded Confirmed Last Taken Type Zolpidem [Ambien] 10 mg PO QHS 06/30/16 12/27/18 Unknown History Amlodipine Besylate [Norvasc] 5 mg PO DAILY 12/27/18 12/27/18 Unknown History Active Medications: Generic Name Dose Route Start Last Admin Trade Name Freq PRN Reason Stop Dose Admin Heparin Sodium (Porcine) 5,000 unit 12/27/18 10:00 12/28/18 09:49 Heparin SUB-Q 5,000 unit Q12HR JOSELINE Administration Sodium Chloride 1,000 mls @ 125 mls/hr 12/27/18 06:00 12/28/18 12:50 Nacl 0.9% 1000 Ml IV 125 mls/hr DIRECT JOSELINE Administration Morphine Sulfate 2 mg 12/27/18 05:02 12/28/18 09:49 Morphine IV 2 mg Q4H PRN Administration Pain, Moderate (4-6) Ondansetron HCl 4 mg 12/27/18 05:02 12/27/18 21:05 Zofran IV 4 mg Q8H PRN Administration Nausea And Vomiting Zolpidem Tartrate 10 mg 12/27/18 22:00 12/27/18 21:04 Ambien PO 10 mg QHS JOSELINE Administration
[2018-12-28] MEDS: PERCOCET 5/325 PO PRN (14:57)
[2018-12-28] MEDS: PROTONIX PO SCH (14:57)
[2018-12-28] MEDS: ZOFRAN IV PRN (17:39)
[2018-12-28] MEDS: AMBIEN PO SCH (22:18)
[2018-12-29] MEDS: MORPHINE IV PRN ×2 (00:11→06:58)
[2018-12-29] MEDS: NACL 0.9% 1000 ML 1,000 ML IV SCH (06:20)
[2018-12-29 06:25] LABS: Hemoglobin 12.4 gm/dl (10.1-14.3); Mean Corpuscular HGB Conc 32 % (30-34); Mean Corpuscular Volume 91 fl (79-97); Platelet Count 642 K/mm3 (140-440); Red Blood Count 4.31 M/mm3 (3.65-5.03); Red Cell Distribution Width 16.4 % (13.2-15.2)
[2018-12-29 06:53] LABS: Alanine Aminotransferase 528 units/L (7-56); BUN/Creatinine Ratio 15; Blood Urea Nitrogen 17 mg/dL (7-17); Calcium 8.6 mg/dL (8.4-10.2); Hemolysis Index 20
[2018-12-29] MEDS: HEPARIN SUB-Q SCH (10:19)
[2018-12-29] MEDS: PROTONIX PO SCH (10:19)
[2018-12-29] MEDS: PERCOCET 5/325 PO PRN (11:05)
--- NOTE | 2018-12-29 11:41 | Discharge Summary ---
Providers - Providers Date of Admission: 12/27/18 04:08 Date of discharge: 12/29/18 Attending physician: LAYNE ORTEGA 12/27/18 05:01 Consult to Physician [CONS] Routine Comment: Consulting Provider: LEV MAYFIELD Physician Instructions: Reason For Exam: TRANSAMINITIS 12/27/18 06:00 Consult to Physician [CONS] Routine Comment: Consulting Provider: CHANTEL GARCIA Physician Instructions: Reason For Exam: ROBIN [facility] Hospitalization Condition: Fair Disposition: DC-01 TO HOME OR SELFCARE - Discharge Diagnoses (1) SIRS (systemic inflammatory response syndrome) Status: Acute (2) Viral gastroenteritis Status: Acute Exam - Constitutional Vitals: Temp Pulse Resp BP Pulse Ox 97.7 F 74 20 123/79 96 12/29/18 05:09 12/29/18 05:09 12/29/18 05:09 12/29/18 05:09 12/29/18 05:09 Plan Activity: advance as tolerated Diet: low fat, low cholesterol, low salt Plan of Treatment: 1.Follow up with PCP in 1 week. 2.Follow up with Oncology at [facility] as scheduled 3.Follow up with Dr. Claire, GI in 1 week Assessment: 1.Elevated LFT 2.Acute gastroenteritis Follow up with: MARVA ANDREA MD [Primary Care Provider] - 3-5 Days Prescriptions: HYDROcodone/APAP 5-325 [[place] 5/325] 1 each PO Q6HR PRN #10 tablet PRN Reason: Pain
[2018-12-29 12:49] VITALS: BP 117/79
--- NOTE | 2018-12-29 15:17 | Progress Note ---
Assessment and Plan - Patient Problems (1) Acute kidney failure Current Visit: Yes Status: Acute Plan to address problem: Likely pre-renal in origin. Recovery of renal function noted with appropriate fluid hydration. From a renal standpoint patient is stable for DC. Recommend that patient follows up with nephrology in 2-3 weeks post discharge. (2) Hyperkalemia Current Visit: Yes Status: Acute Plan to address problem: Likely in the setting of ROBIN, Resolved With increased distal sodium delivery via IVF/NS, helping to augment potassium excretion. Low K diet. (3) Hypertensive chronic kidney disease with stage 1 through stage 4 chronic kidney disease, or unspecified chronic kidney disease Current Visit: Yes Status: Chronic Plan to address problem: Continue current regimen and closely monitor. (4) Abdominal pain Current Visit: Yes Status: Acute Qualifiers: Abdominal location: generalized Qualified Code(s): R10.84 - Generalized abdominal pain Plan to address problem: No acute abnormalities seen on CT abdomen. GI evaluation reviewed. (5) Transaminitis Current Visit: Yes Status: Acute Plan to address problem: Hepatitis profile was negative. GI recommendations reviewed. (6) Morbid obesity Current Visit: Yes Status: Chronic Plan to address problem: Counseled patient on the importance of weight loss, and daily exercise. Subjective Date of service: 12/29/18 Interval history: No acute issues overnight, renal function continues to show improvement. Objective - Vital Signs Vital signs: Vital Signs - 12hr 12/29/18 12/29/18 05:09 12:17 Temperature 97.7 F 97.7 F Pulse Rate 74 68 Respiratory 20 20 Rate Blood Pressure 123/79 117/79 O2 Sat by Pulse 96 97 Oximetry - General Appearance General appearance: well-developed, well-nourished, appears stated age, obese EENT: ATNC, PERRL Neck: no JVD, no thyromegaly Respiratory: Present: Clear to Ascultation, Normal Exam Cardiology: regular, S1S2 Gastrointestinal: normal, normoactive bowel sounds Integumentary: no rash, warm and dry Neurologic: no focal deficit, alert and oriented x3 Psychiatric: mood/affect appropriate, cooperative - Lab 12/29/18 05:48 12/29/18 05:48 Most recent lab results Calcium 8.6 mg/dL (8.4-10.2) 12/29/18 05:48 267.3 mg/dL (0.1-20.0) H 12/27/18 Unknown 16 mmol/L 12/27/18 Unknown 117 mg/dL (5-11.8) H 12/27/18 Unknown - Allied health notes Allied health notes reviewed: nursing Medications & Allergies - Medications Allergies/Adverse Reactions: Allergies No Known Allergies Allergy (Verified 01/31/18 16:41) Home Medications: Home Medications Medication Instructions Recorded Confirmed Last Taken Type Zolpidem [Ambien] 10 mg PO QHS 06/30/16 12/27/18 Unknown History Amlodipine Besylate [Norvasc] 5 mg PO DAILY 12/27/18 12/27/18 Unknown History HYDROcodone/APAP 5-325 [[place] 1 each PO Q6HR PRN #10 tablet 12/29/18 Unknown Rx 5/325] Active Medications: Generic Name Dose Route Start Last Admin Trade Name Freq PRN Reason Stop Dose Admin Heparin Sodium (Porcine) 5,000 unit 12/27/18 10:00 12/29/18 10:19 Heparin SUB-Q 5,000 unit Q12HR JOSELINE Administration Sodium Chloride 1,000 mls @ 125 mls/hr 12/27/18 06:00 12/29/18 06:20 Nacl 0.9% 1000 Ml IV 125 mls/hr DIRECT JOSELINE Administration Morphine Sulfate 2 mg 12/27/18 05:02 12/29/18 06:58 Morphine IV 2 mg Q4H PRN Administration Pain, Moderate (4-6) Ondansetron HCl 4 mg 12/27/18 05:02 12/28/18 17:39 Zofran IV 4 mg Q8H PRN Administration Nausea And Vomiting Oxycodone/Acetaminophen 1 tab 12/28/18 14:47 12/29/18 11:05 Percocet 5/325 PO 1 tab Q4H PRN Administration Pain, Moderate (4-6) Pantoprazole Sodium 40 mg 12/28/18 15:00 12/29/18 10:19 Protonix PO 40 mg QDAY JOSELINE Administration Zolpidem Tartrate 10 mg 12/27/18 22:00 12/28/18 22:18 Ambien PO 10 mg QHS JOSELINE Administration
== END 2018-12-29 16:20 | disposition home or self-care (01) | DRG 682 ==
LOC: ED 16:19 → 3A 12-27 04:08
PROVIDERS: ADMIT Internal Medicine; ATTEND Internal Medicine
DX: N17.0 Acute kidney failure with tubular necrosis (principal); R65.11 Systemic inflammatory response syndrome (SIRS) of non-infectious origin with acute organ dysfunction; Z68.44 Body mass index [BMI] 60.0-69.9, adult; A08.4 Viral intestinal infection, unspecified; R74.0 Nonspecific elevation of levels of transaminase and lactic acid dehydrogenase [LDH]; I12.9 Hypertensive chronic kidney disease with stage 1 through stage 4 chronic kidney disease, or unspecified chronic kidney disease; N18.9 Chronic kidney disease, unspecified; E66.01 Morbid (severe) obesity due to excess calories; E87.5 Hyperkalemia; K21.9 Gastro-esophageal reflux disease without esophagitis; Z71.3 Dietary counseling and surveillance; Z79.899 Other long term (current) drug therapy; Z85.3 Personal history of malignant neoplasm of breast; Z90.81 Acquired absence of spleen; Z90.5 Acquired absence of kidney; Z82.49 Family history of ischemic heart disease and other diseases of the circulatory system; Z72.89 Other problems related to lifestyle
CPT/HCPCS: 36415; 71046; 74177; 76775; 80048; 80053; 80074; 80076; 81001; 81025; 82436; 82570; 82962; 83690; 84156; 84300; 84484; 85025; 85027; 85610; 85730; 86038; 93005; 93010; 96361; 96365; 96375; G0378; J0696; J1100; J1644; J1885; J2270; J2405; J3430; J7030; Q9967

== ENCOUNTER 2021-08-01 07:28 | Observation (INO) | payer MEDICARE ==
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
--- NOTE | 2021-08-01 07:40 | Emergency Department Report ---
Blank Doc - Documentation Documentation: [facility] Consult Note # Demographics Consult Type: Acute Stroke Level 1 (0-4.5 hrs) Patient Location: Emergency Room First Name: rony Last Name: suzanne Date of : 1980 Age: 41 Gender: Female Facility: [facility] Time of Initial Page ( Time): 08/01/2021, 07:22 Time of Return Call ( Time): 08/01/2021, 07:22 # HPI History: 41 yo woman HTN, schizophrenia, hx of breast cancer, , woke up today with severe headache, EMS had to be called. Prior to EMS arrival, the patient had syncopal episode. EMS noted some left sided weakness, mumbled speech. Last normal last night. # Scores Time of exam and NIHSS ( Time): 08/01/2021, 07:28 Level of Consciousness 1a: [1] = Not alert; but arousable by minor stim LOC Questions 1b: [2] = Answers neither correctly LOC Commands 1c: [2] = Performs neither correctly Best Gaze 2: [0] = Normal Visual 3: [0] = No visual loss Facial Palsy 4: [0] = Normal symmetrical movements Motor Arm Left 5a: [2] = Some effort against gravity Motor Arm Right 5b: [2] = Some effort against gravity Motor Leg Left 6a: [2] = Some effort against gravity Motor Leg Right 6b: [2] = Some effort against gravity Limb Ataxia 7: [0] = Absent Sensory 8: [0] = Normal Best Language 9: [1] = [id number] aphasia Dysarthria 10: [2] = Severe dysarthria Extinction and Inattention 11: [0] = No abnormality NIHSS Total: 16 # Data Head CT: no bleed no evidence of blood grossly, when viewed through telemed camera. keven formal read # Plan Thrombolytic/Intervention: NOT IV Thrombolysis or IA Intervention candidate Thrombolytic Exclusion: > 4.5 hours Intraarterial Exclusion: cta read is pending. Target Blood Pressure: SBP < 200 Labs: CBC comprehensive metabolic panel lipid panel TSH ua Medication: aspirin 325 mg daily DVT Prophylaxis: heparin 5000 units subcutaneously q 12 hours Other: consult on-site neurology service for full work-up and evaluation recommendations If patient has any neurological deterioration please call me back immediately I have discussed my recommendations with the referring provider Additional Recommendations: MRI brain wo contrast CTA head and neck w/ contrast wait for formal read before starting aspirin Echo if MRI positive for stroke Migraine cocktail Disposition: admit # Logistics Telemedicine: Interactive 2 way audio and visual telecommunication technology was utilized during this visit
--- NOTE | 2021-08-01 07:55 | Cat Scan Report ---
CT HEAD WITHOUT CONTRAST INDICATION / CLINICAL INFORMATION: CODE STROKE CALL ER MAIN AT 8199 ams, slurred speech , almodovar. TECHNIQUE: Axial imaging performed from the skull apex through the skull base without the use of cont rast. Sagittal and coronal reformatted images. All CT scans at this location are performed using CT dose reduction for ALARA by means of automated exposure control. COMPARISON: None available. FINDINGS: CEREBRAL PARENCHYMA: No significant abnormality. No acute territorial infarct. HEMORRHAGE: None. EXTRA-AXIAL SPACES: Normal in size and morphology for the patient's age. VENTRICULAR SYSTEM: Normal in size and morphology for the patient's age. MIDLINE SHIFT OR HERNIATION: None. CEREBELLUM / BRAINSTEM: No significant abnormality. CALVARIUM: No significant abnormality. ORBITS: Normal as visualized. PARANASAL SINUSES / MASTOID AIR CELLS: Normal as visualized. SOFT TISSUES of HEAD: No significant abnormality. ADDITIONAL FINDINGS: None. IMPRESSION: No acute intracranial abnormality. CODE STROKE: Time of Communication (CLINICAL TRIAL ASSISTANT/CDT): 0650 hours Licensed Practitioner Receiving Report: Dr. Salcedo Signer Name: Monty Muniz Jr, MD Signed: 08/01/2021 7:51 AM Workstation Name: [id number]
[2021-08-01 08:04] LABS: Basophils # (Auto) 0.1 K/mm3 (0.0-0.1); Basophils % (Auto) 0.7 % (0.0-1.8); Eosinophils # (Auto) 0.6 K/mm3 (0.0-0.4); Eosinophils % (Auto) 6.6 % (0.0-4.3); Hematocrit 40.3 % (30.3-42.9); Hemoglobin 12.9 gm/dl (10.1-14.3); Lymphocytes # (Auto) 3.6 K/mm3 (1.2-5.4); Lymphocytes % (Auto) 41.8 % (13.4-35.0); Mean Corpuscular HGB Conc 32 % (30-34); Mean Corpuscular Volume 90 fl (79-97); Monocytes # (Auto) 0.7 K/mm3 (0.0-0.8); Monocytes % (Auto) 8.3 % (0.0-7.3); Platelet Count 437 K/mm3 (140-440); Red Blood Count 4.49 M/mm3 (3.65-5.03); Red Cell Distribution Width 16.1 % (13.2-15.2)
--- NOTE | 2021-08-01 08:05 | Cat Scan Report ---
CTA HEAD WITH CONTRAST HISTORY: Code stroke, altered mental status, slurred speech, headache COMPARISON: Correlation was made with CT head performed earlier today. No previous CT head. TECHNIQUE: Routine non-contrast CT Head, CTA of the head and post-contrast CT Head are performed. 3-D /MIP reformats postprocessed. All CT scans at this location are performed using CT dose reduction for ALARA by means of automated e xposure control CONTRAST: 100 ml of Omnipaque 350 FINDINGS: CTA Head: Intracranial vertebral arteries: No significant abnormality. Basilar artery: No significant abnormality. Posterior cerebral arteries: No significant abnormality. Moderate to large bilateral posterior commun icating arteries are noted. Intracranial internal carotid arteries: No significant abnormality. Anterior cerebral arteries: No significant abnormality. Middle cerebral arteries: No significant abnormality. Dural venous sinuses:Not optimally opacified. No significant abnormality. Aneurysm: None. Additional findings: None. IMPRESSION: 1. No significant abnormality. No evidence for large vessel occlusion or aneurysm. Signer Name: Monty Muniz Jr, MD Signed: 08/01/2021 8:01 AM Workstation Name: [id number]
--- NOTE | 2021-08-01 08:09 | Cat Scan Report ---
CT ANGIO NECK INDICATION / CLINICAL INFORMATION: 41 years Female; CODE STROKE CALL ER MAIN AT 8199 OMNI 350 100 ML ams slurred speech, almodovar. TECHNIQUE: Thin cut axial images obtained through the head during IV bolus contrast administration. S agittal, coronal, and 3 plane MIP reconstructions performed by the technologist. NASCET type criteria used evaluate stenoses. All CT scans at this location are performed using CT dose reduction for ALAR A by means of automated exposure control. COMPARISON: None available. FINDINGS: Comment: Resolution of the images are somewhat limited secondary to body habitus. ARCH: Normal aortic arch branching suggested. CAROTID ARTERIES: The visualized common and internal carotid arteries are widely patent. VERTEBRAL ARTERIES: Codominant vertebral system seen. No significant stenosis appreciated. ADDITIONAL FINDINGS: Remainder of the surrounding soft tissues are grossly normal. IMPRESSION: No significant stenosis appreciated on this CTA of the neck. Signer Name: Monty Muniz Jr, MD Signed: 08/01/2021 8:05 AM Workstation Name: [id number]
[2021-08-01 08:15] LABS: INR 0.87 (0.87-1.13)
[2021-08-01 08:16] LABS: Partial Thromboplastin Time 29.1 Sec. (24.2-36.6); Thrombin Time 17.1 Sec. (15.1-19.6)
[2021-08-01 08:26] LABS: Alanine Aminotransferase 7 units/L (7-56); Albumin 3.1 g/dL (3.9-5); BUN/Creatinine Ratio 9; Blood Urea Nitrogen 14 mg/dL (7-17); Calcium 8.9 mg/dL (8.4-10.2); Hemolysis Index 6
[2021-08-01 08:27] LABS: Creatine Kinase MB 1.6 ng/mL (0.0-4.0)
[2021-08-01] MEDS ORDERED: LIDOCAINE (4%) 40 MG/ML TOPICAL SOLN 50 ML BOTTLE TP ONE (08:28)
[2021-08-01] MEDS ORDERED: diphenhydrAMINE 50 MG/ML VIAL IV ONE (08:28)
[2021-08-01] MEDS ORDERED: SODIUM CHLORIDE 0.9% 500 ML 500 ML IV ONE (08:28)
[2021-08-01] MEDS ORDERED: ASPIRIN 81 MG TAB CHEW PO ONE (08:28)
[2021-08-01] MEDS ORDERED: METOCLOPRAMIDE 10 MG/2 ML INJ IV ONE (08:28)
[2021-08-01] MEDS ORDERED: ACETAMINOPHEN 325 MG TAB PO ONE (08:28)
--- NOTE | 2021-08-01 09:16 | History and Physical Report ---
Medications and Allergies Allergies Allergy/AdvReac Type Severity Reaction Status Date / Time No Known Allergies Allergy Verified 08/01/21 07:41 Home Medications Medication Instructions Recorded Confirmed Last Taken Type Amlodipine Besylate [Norvasc] 5 mg PO DAILY 12/27/18 08/01/21 Unknown History ALPRAZolam [Alprazolam] 2 mg PO BID 08/01/21 08/01/21 Unknown History Albuterol Sulfate [Proair 90 mcg IH Q6HR PRN 08/01/21 08/01/21 Unknown History Digihaler] Loratadine 10 mg PO DAILY 08/01/21 08/01/21 Unknown History Topiramate [Topamax] 100 mg PO BID 08/01/21 08/01/21 Unknown History Zolpidem Tartrate 10 mg PO QHS 08/01/21 08/01/21 Unknown History cloNIDine [Catapres] 0.2 mg PO QHS 08/01/21 08/01/21 Unknown History risperiDONE [RisperDAL] 3 mg PO BID 08/01/21 08/01/21 Unknown History Active Meds: Active Medications Acetaminophen (Acetaminophen 325 Mg Tab) 650 mg PO Q4H PRN PRN Reason: Pain MILD(1-3)/Fever >100.5/FRAZIER Morphine Sulfate (Morphine 4 Mg/1 Ml Inj) 4 mg IV Q4H PRN PRN Reason: Pain , Severe (7-10) Ondansetron HCl (Ondansetron 4 Mg/2 Ml Inj) 4 mg IV Q8H PRN PRN Reason: Nausea And Vomiting Oxycodone/Acetaminophen (Oxycodone /Acetaminophen 5-325mg Tab) 1 tab PO Q6H PRN PRN Reason: Pain, Moderate (4-6) Sodium Chloride (Sodium Chloride 0.9% 10 Ml Flush Syringe) 10 ml IV BID JOSELINE Sodium Chloride (Sodium Chloride 0.9% 10 Ml Flush Syringe) 10 ml IV PRN PRN PRN Reason: LINE FLUSH Exam - Constitutional Vitals: Temp Pulse Resp BP Pulse Ox 74 12 149/97 100 08/01/21 08:30 08/01/21 09:01 08/01/21 08:30 08/01/21 09:01 HEART Score - HEART Score Troponin: Troponin T < 0.010 ng/mL (0.00-0.029) 08/01/21 07:53 Results - Labs CBC & Chem 7: 08/01/21 07:53 08/01/21 07:53 Labs: Laboratory Last Values WBC 8.6 K/mm3 (4.5-11.0) 08/01/21 07:53 RBC 4.49 M/mm3 (3.65-5.03) 08/01/21 07:53 Hgb 12.9 gm/dl (10.1-14.3) 08/01/21 07:53 Hct 40.3 % (30.3-42.9) 08/01/21 07:53 MCV 90 fl (79-97) 08/01/21 07:53 MCH 29 pg (28-32) 08/01/21 07:53 MCHC 32 % (30-34) 08/01/21 07:53 RDW 16.1 % (13.2-15.2) H 08/01/21 07:53 Plt Count 437 K/mm3 (140-440) 08/01/21 07:53 Lymph % (Auto) 41.8 % (13.4-35.0) H 08/01/21 07:53 [place] % (Auto) 8.3 % (0.0-7.3) H 08/01/21 07:53 Eos % (Auto) 6.6 % (0.0-4.3) H 08/01/21 07:53 Baso % (Auto) 0.7 % (0.0-1.8) 08/01/21 07:53 Lymph # (Auto) 3.6 K/mm3 (1.2-5.4) 08/01/21 07:53 [place] # (Auto) 0.7 K/mm3 (0.0-0.8) 08/01/21 07:53 Eos # (Auto) 0.6 K/mm3 (0.0-0.4) H 08/01/21 07:53 Baso # (Auto) 0.1 K/mm3 (0.0-0.1) 08/01/21 07:53 Seg Neutrophils % 42.6 % (40.0-70.0) 08/01/21 07:53 Seg Neutrophils # 3.7 K/mm3 (1.8-7.7) 08/01/21 07:53 PT 12.7 Sec. (12.2-14.9) 08/01/21 07:53 INR 0.87 (0.87-1.13) 08/01/21 07:53 APTT 29.1 Sec. (24.2-36.6) 08/01/21 07:53 Thrombin Time 17.1 Sec. (15.1-19.6) 08/01/21 07:53 Sodium 139 mmol/L (137-145) 08/01/21 07:53 Potassium 4.6 mmol/L (3.6-5.0) 08/01/21 07:53 Chloride 103.9 mmol/L (98-107) 08/01/21 07:53 Carbon Dioxide 27 mmol/L (22-30) 08/01/21 07:53 Anion Gap 13 mmol/L 08/01/21 07:53 BUN 14 mg/dL (7-17) 08/01/21 07:53 Creatinine 1.5 mg/dL (0.6-1.2) H 08/01/21 07:53 Estimated GFR 46 ml/min 08/01/21 07:53 BUN/Creatinine Ratio 9 % 08/01/21 07:53 Glucose 93 mg/dL (65-100) 08/01/21 07:53 Calcium 8.9 mg/dL (8.4-10.2) 08/01/21 07:53 Magnesium 1.80 mg/dL (1.7-2.3) 08/01/21 07:53 Total Bilirubin 0.20 mg/dL (0.1-1.2) 08/01/21 07:53 AST 7 units/L (5-40) 08/01/21 07:53 ALT 7 units/L (7-56) 08/01/21 07:53 Alkaline Phosphatase 68 units/L (35-129) 08/01/21 07:53 Total Creatine Kinase 65 units/L (30-135) 08/01/21 07:53 Total Creatine Kinase 65 units/L (30-135) 08/01/21 07:53 CK-MB (CK-2) 1.6 ng/mL (0.0-4.0) 08/01/21 07:53 CK-MB (CK-2) Rel Index 2.4 (0-4) 08/01/21 07:53 Troponin T < 0.010 ng/mL (0.00-0.029) 08/01/21 07:53 Total Protein 7.1 g/dL (6.3-8.2) 08/01/21 07:53 Albumin 3.1 g/dL (3.9-5) L 08/01/21 07:53 Albumin/Globulin Ratio 0.8 % 08/01/21 07:53 HCG, Quant < 2 mIU/mL (0-4) 08/01/21 07:53 Salicylates < 0.3 mg/dL (2.8-20.0) L 08/01/21 07:53 Acetaminophen 5.0 ug/mL (10.0-30.0) L 08/01/21 07:53 Plasma/Serum Alcohol < 0.01 % (0-0.07) 08/01/21 07:53
--- NOTE | 2021-08-01 09:22 | XRay Report ---
CHEST 1 VIEW INDICATION: ams cva. COMPARISON: 12/26/2018 FINDINGS: Support devices: None. Heart: Within normal limits. Lungs/Pleura: No acute air space or interstitial disease. Additional findings: None. IMPRESSION: No acute findings. Signer Name: Monty Muniz Jr, MD Signed: 08/01/2021 9:17 AM Workstation Name: [id number]
[2021-08-01 09:41] LABS: Bilirubin,Urine NEG (Negative); Blood,Urine NEG (Negative); Color,Urine Straw (Yellow); Mucus,Urine FEW /HPF; Protein,Urine <15 mg/dL mg/dL (Negative); RBC,Urine < 1.0 /HPF (0.0-6.0); Urobilinogen,Urine < 2.0 mg/dL (<2.0)
[2021-08-01 09:50] LABS: Amphetamine Screen,Urine Negative; Benzodiazepines Screen,Urine Negative; Cannabinoid Screen,Urine Negative; Methadone Screen,Urine Negative; Opiate Screen,Urine Negative
[2021-08-01] MEDS ORDERED: ACETAMINOPHEN 325 MG TAB PO PRN (10:00)
[2021-08-01] MEDS ORDERED: ONDANSETRON 4 MG/2 ML INJ IV PRN (10:00)
[2021-08-01] MEDS ORDERED: MORPHINE 4 MG/1 ML INJ IV PRN (10:00)
[2021-08-01 10:26] LABS: Cocaine Screen,Urine Positive
[2021-08-01 10:37] LABS: Chol/HDL Ratio 4.32 %
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
[2021-08-01] MEDS: oxyCODONE /ACETAMINOPHEN 5-325MG TAB PO PRN (18:37)
[2021-08-02] MEDS: oxyCODONE /ACETAMINOPHEN 5-325MG TAB PO PRN ×2 (04:43→10:57)
[2021-08-02 08:16] LABS: Hematocrit 39.4 % (30.3-42.9); Hemoglobin 12.3 gm/dl (10.1-14.3); Mean Corpuscular HGB Conc 31 % (30-34); Mean Corpuscular Volume 91 fl (79-97); Platelet Count 442 K/mm3 (140-440); Red Blood Count 4.32 M/mm3 (3.65-5.03); Red Cell Distribution Width 16.3 % (13.2-15.2)
[2021-08-02 08:36] VITALS: BP 111/80
[2021-08-02] MEDS ORDERED: amLODIPine 5 MG TAB PO SCH (10:00)
--- NOTE | 2021-08-02 11:02 | Progress Note ---
Assessment and Plan Assessment and Plan Assessment and plan: 41-year-old female, presenting to the hospital with EMS as a code stroke. As per EMS, patient woke up this morning at approximately 6:00 with a headache and dysarthria. Patient herself is not able to describe her exact last known well time, and therefore, TPA is contraindicated. Code stroke called overhead, patient seen and examined by myself immediately, as well as with stroke neurology. CT scan of the brain negative for acute findings, CT angiogram head and neck negative for acute findings. Laboratory studies are essentially unremarkable at this time. # New onset of bad headache associated with drowsiness -Differential diagnosis Migraine like r/o SST and normal pressure hydrocephalus-- could not see fundus on exam today she is morbidly obese unfortunatly MRI and MRV unable to do -exam is none focal -No neck stiffness -CT brain and CTA brain and neck are unremarkable -UDS is positive for cocaine -MRI brain is unable to do due to over weight . -A1C#5.9 -LDL#105 # Morbid obesity -r/o sleep apnea -need out pt. sleep study -weight loss #Hx of schizophrenia # HTN # HLP # Positive UDS -cocain PLAN -stop narcotics -tylenol prn for headache -neurology follow up -consider MRI/MRV as needed out pt. -stop recreational drugs -sleep study -weight loss will follow as needed Subjective Date of service: 08/02/21 Principal diagnosis: headache Interval history: headache is better , no blurred vision on percocet according to her headache mainly left side , no neck rigidity , no nausea, no visual changes she took cocain and marijuana in her birthday !!!! she is morbidly obese can not do MRI brain Objective - Vital Sign Vital Signs - 12hr 08/01/21 08/02/21 08/02/21 23:20 00:06 02:05 Temperature 98.3 F Pulse Rate 66 Respiratory 16 19 Rate Blood Pressure 125/73 O2 Sat by Pulse 94 100 100 Oximetry 08/02/21 08/02/21 08/02/21 04:45 08:31 10:00 Temperature 98.3 F 98.9 F Pulse Rate 70 68 Respiratory 18 18 Rate Blood Pressure 107/73 111/80 O2 Sat by Pulse 99 100 99 Oximetry - General Apperance Constitutional: comfortable - EENT EENT: PERRL, mucous membranes moist - Respiratory Respiratory: lungs clear, rhonchi - Cardiovascular Cardiovascular: regular rate, normal S1, normal S2 Extremities: no peripheral edema bilat, no clubbing, cyanosis - Gastrointestinal Gastrointestinal: normoactive bowel sounds - Integumentary Integumentary: normal - Neurologic Cranial nerve examination: PERRL, EOMI, intact, other (could not see fundus ) Speech examination: intact Detailed motor examination: grossly full strength in - Laboratory Findings CBC and BMP: 08/02/21 06:59 08/02/21 06:59 Abnormal Lab Findings: Abnormal Labs 08/01/21 08/01/21 08/01/21 07:53 07:53 07:53 RDW 16.1 H Plt Count Lymph % (Auto) 41.8 H [place] % (Auto) 8.3 H Eos % (Auto) 6.6 H Eos # (Auto) 0.6 H Creatinine 1.5 H Albumin 3.1 L HDL Cholesterol Salicylates < 0.3 L Acetaminophen 08/01/21 08/01/21 08/02/21 07:53 09:45 06:59 RDW 16.3 H Plt Count 442 H Lymph % (Auto) [place] % (Auto) Eos % (Auto) Eos # (Auto) Creatinine Albumin HDL Cholesterol 37 L Salicylates Acetaminophen 5.0 L
--- NOTE | 2021-08-02 12:29 | Discharge Summary ---
Providers - Providers Date of Admission: 08/01/21 09:09 Date of discharge: 08/02/21 Attending physician: SAROJ QUESADA MD 08/01/21 08:29 Speech Therapy Evaluation and Treat [CONS] Urgent Reason For Exam: Failed swallow screen 08/01/21 09:08 Consult to Physician [CONS] Routine Comment: Consulting Provider: JULIA STORM Physician Instructions: Reason For Exam: CVA r/o Primary care physician: HIRAL MORGAN Hospitalization Condition: Good Disposition: 30 STILL A PATIENT Exam - Constitutional Vitals: Temp Pulse Resp BP Pulse Ox 98.9 F 68 18 111/80 99 08/02/21 08:31 08/02/21 08:31 08/02/21 08:31 08/02/21 08:31 08/02/21 10:00 Plan Care Plan Goals: Please make an appointment with your primary care provider soon as possible. Please asked for referral for sleep study for CPAP machine. Please refrain from using any recreational drugs. If your headache should return it is okay to use over the counter extra strength Tylenol. Please schedule a follow-up with Neurology through your primary care provider. Please take all medications as prescribed. Follow up with: HIRAL MORGAN MD [Primary Care Provider] - 3-5 Days Prescriptions: Loratadine 10 mg PO DAILY 90 Days #90 tab Amlodipine Besylate [Norvasc] 5 mg PO DAILY 90 Days #90 tab Albuterol Sulfate [Proair Digihaler] 90 mcg IH Q6HR PRN 90 Days #3 each PRN Reason: Wheezing
--- NOTE | 2021-08-04 13:58 | Electrocardiograph Report ---
[facility] Test Date: 2021-08-01 Test Time: 07:53:10 Pat Name: DILIP RAY Department: Room: A467 1 Gender: F Radiology Scheduler: HOA : 1980 Requested By: LAYNE JEAN Order Number: [id number] Reading MD: Jeni Perdomo Measurements Intervals [place] Rate: 78 P: 27 DE: 127 QRS: -50 QRSD: 95 T: 48 QT: 397 QTc: 452 Interpretive Statements Sinus rhythm LEFT AXIS DEVIATION No previous ECG available for comparison Electronically Signed On 08-04-2021 13:57:26 EDT by Jeni Perdomo
== END 2021-08-02 13:53 | disposition home or self-care (01) ==
LOC: ED 07:28 → 4A 09:09
PROVIDERS: ADMIT Student in an Organized Health Care Education/Training Program; ATTEND Student in an Organized Health Care Education/Training Program
DX: R51.9 Headache, unspecified (principal); R47.81 Slurred speech; R53.1 Weakness; I69.922 Dysarthria following unspecified cerebrovascular disease; E66.9 Obesity, unspecified; E78.5 Hyperlipidemia, unspecified; I10 Essential (primary) hypertension; J45.909 Unspecified asthma, uncomplicated; R29.716 NIHSS score 16; K21.9 Gastro-esophageal reflux disease without esophagitis; F31.9 Bipolar disorder, unspecified; F25.9 Schizoaffective disorder, unspecified; Z68.44 Body mass index [BMI] 60.0-69.9, adult; Z98.891 History of uterine scar from previous surgery; Z79.899 Other long term (current) drug therapy; Z98.890 Other specified postprocedural states; Z79.82 Long term (current) use of aspirin
CPT/HCPCS: 36415; 70450; 70496; 70498; 71045; 80048; 80053; 80061; 80307; 81001; 82550; 82553; 82962; 83036; 83735; 84443; 84484; 84702; 85025; 85027; 85610; 85670; 85730; 92610; 93005; 94660; 94760; 96374; 96375; 99285; G0378; J1200; J2765; J7040; Q9967; 80320; G0480